=== PATIENT | male | born 2005 | race African-American/Black ===

== ENCOUNTER → 2024-08-16 15:47 | Outpatient (CLI) | payer OTHER, SELFPAY ==
--- NOTE | 2024-08-16 15:51 | DI.CT.S_ITS ---
PROCEDURE: CT WRIST RIGHT WITHOUT CON INDICATIONS: WRIST PAIN TECHNIQUE: Noncontrast 1 mm axial sections acquired through the carpal bones, with coronal and sagittal reformats. For radiation dose reduction, the following was used: automated exposure control, adjustment of mA and/or kV according to patient size. COMPARISON: None. FINDINGS: Image quality: Excellent. Bones: Transverse fracture of the waist of the scaphoid, which appears nearly healed with solid osseous bridging across the majority of the fracture line and. Mild residual lucency along the fracture margins. No signs of proximal pole osteonecrosis. No additional osseous fracture is seen. Soft tissues: Small radiocarpal effusion. The articular cartilages, ligaments, tendons are not well evaluated with CT. The visualized musculature is normal in bulk. IMPRESSION: Healing nondisplaced transverse fracture of the waist of the scaphoid of indeterminate age with bony bridging across the majority of the fracture plane. No signs of proximal pole osteonecrosis. Approved by: Faustino Deshpande M.D. on 08/17/2024 at 16:33
== END ==
PROVIDERS: Referring Provider Student in an Organized Health Care Education/Training Program; Visit Provider Student in an Organized Health Care Education/Training Program
DX: S62.024D Nondisplaced fracture of middle third of navicular [scaphoid] bone of right wrist, subsequent encounter for fracture with routine healing (principal); X58.XXXD Exposure to other specified factors, subsequent encounter
CPT/HCPCS: 73200